=== PATIENT | female | born 1990 | race Caucasian/White ===

== ENCOUNTER 2019-10-19 17:48 | Observation (INO) | payer BC ==
--- NOTE | 2019-10-19 19:00 | EDM.PDOC ---
ED HPI GENERAL MEDICAL PROBLEM - General Chief Complaint: Gastrointestinal Problem Stated Complaint: VOMITING/STOMACH PAIN Time Seen by Provider: 10/19/19 19:00 Source of Information: Reports: Patient History Limitations: Reports: No Limitations - History of Present Illness INITIAL COMMENTS - FREE TEXT/NARRATIVE: 29 years old female patient presented with a chief complaint of severe epigastric pain started yesterday, constant, no radiation, dull aching and sharp pain. Nothing makes it better or worse. Associated with nausea and vomiting. Frequent vomiting. Has some blood speckles on it. Denies any fever. Denies any chest pain shortness breath. Denies any cough. Denies any urinary symptom. Denies any diarrhea. She did not had a bowel movement since yesterday and she thinks she might be constipated. She denies any vaginal discharge but she is having her period currently. She was seen earlier at the clinic and prescribed Zofran and Phenergan, no workup was done. 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 ED EXAM, GI/ABD - Physical Exam Exam: See Below Exam Limited By: No Limitations General Appearance: Alert, WD/WN, No Apparent Distress Respiratory/Chest: No Respiratory Distress, Lungs Clear, Normal Breath Sounds, No Accessory Muscle Use, Chest Non-Tender Cardiovascular: Normal Peripheral Pulses, Regular Rate, Rhythm, No Edema, No Gallop, No JVD, No Murmur, No Rub GI/Abdominal Exam: Normal Bowel Sounds, Soft, No Organomegaly, No Distention, No Mass, Other (Epigastric and left upper quadrant tenderness. No guarding no rebound.) Course - Vital Signs Last Recorded V/S: Last Vital Signs Temp 36.7 C 10/19/19 23:28 Pulse 51 L 10/19/19 23:28 Resp 17 10/19/19 23:28 BP 129/96 H 10/19/19 23:28 Pulse Ox 98 10/19/19 23:28 - Orders/Labs/Meds Orders: Active Orders 24 hr Category Date Time Status HYDROmorphone [Dilaudid] Med 10/20/19 00:13 Once 1 mg IVPUSH ONETIME ONE Pantoprazole [ProTONIX IV] 40 mg Med 10/20/19 00:15 Ordered Sodium Chloride 0.9% [Normal Saline] 100 ml IV .BOLUS Labs: Laboratory Tests 10/19/19 10/19/19 10/19/19 Range/Units 19:18 19:18 19:18 WBC 7.0 (4.5-11.0) K/uL RBC 4.63 (3.30-5.50) M/uL Hgb 13.3 (12.0-15.0) g/dL Hct 41.9 (36.0-48.0) % MCV 91 (80-98) fL MCH 29 (27-31) pg MCHC 32 (32-36) % Plt Count 253 (150-400) K/uL Neut % (Auto) 67 H (36-66) % Lymph % (Auto) 19 L (24-44) % [place] % (Auto) 12 H (2-6) % Eos % (Auto) 1 L (2-4) % Baso % (Auto) 0 (0-1) % ESR 16 (0-25) mm/hr PT 10.2 (9.5-12.0) sec INR 0.94 (0.80-1.20) Sodium 141 (140-148) mmol/L Potassium 3.8 (3.6-5.2) mmol/L Chloride 100 (100-108) mmol/L Carbon Dioxide 31 (21-32) mmol/L Anion Gap 10.1 (5.0-14.0) mmol/L BUN 11 (7-18) mg/dL Creatinine 0.9 (0.6-1.0) mg/dL Est Cr Clr Drug Dosing 89.69 mL/min Estimated GFR (MDRD) > 60 (>60) Glucose 112 H (74-106) mg/dL Lactic Acid (0.4-2.0) mmol/L Calcium 8.8 (8.5-10.1) mg/dL Total Bilirubin 0.4 D (0.2-1.0) mg/dL AST 30 (15-37) U/L ALT 30 (12-78) U/L Alkaline Phosphatase 80 (46-116) U/L C-Reactive Protein 0.92 H (0.0-0.3) mg/dL Total Protein 7.8 (6.4-8.2) g/dL Albumin 3.8 (3.4-5.0) g/dL Globulin 4.0 H (2.3-3.5) g/dL Albumin/Globulin Ratio 1.0 L (1.2-2.2) Lipase 262 (73-393) U/L Urine Color (YELLOW) Urine Appearance (CLEAR) Urine pH (5.0-8.0) Ur Specific [place] (1.008-1.030) Urine Protein (NEGATIVE) mg/dL Urine Glucose (UA) (NEGATIVE) mg/dL Urine Ketones (NEGATIVE) mg/dL Urine Occult Blood (NEGATIVE) Urine Nitrite (NEGATIVE) Urine Bilirubin (NEGATIVE) Urine Urobilinogen (0.2-1.0) EU/dL Ur Leukocyte Esterase (NEGATIVE) Urine RBC (0-5) Urine WBC (0-5) Ur Epithelial Cells Amorphous Sediment Urine Bacteria Urine Mucus Urine HCG, Qual Urine Opiates Screen (NEGATIVE) Ur Oxycodone Screen (NEGATIVE) Urine Methadone Screen (NEGATIVE) Ur Propoxyphene Screen (NEGATIVE) Ur Barbiturates Screen (NEGATIVE) Ur Tricyclics Screen (NEGATIVE) Ur Phencyclidine Scrn (NEGATIVE) Ur Amphetamine Screen (NEGATIVE) U Methamphetamines Scrn (NEGATIVE) Urine MDMA Screen (NEGATIVE) U Benzodiazepines Scrn (NEGATIVE) U Cocaine Metab Screen (NEGATIVE) U Marijuana (THC) Screen (NEGATIVE) 01/10/19/19 10/19/19 Range/Units 19:18 23:00 23:00 WBC (4.5-11.0) K/uL RBC (3.30-5.50) M/uL Hgb (12.0-15.0) g/dL Hct (36.0-48.0) % MCV (80-98) fL MCH (27-31) pg MCHC (32-36) % Plt Count (150-400) K/uL Neut % (Auto) (36-66) % Lymph % (Auto) (24-44) % [place] % (Auto) (2-6) % Eos % (Auto) (2-4) % Baso % (Auto) (0-1) % ESR (0-25) mm/hr PT (9.5-12.0) sec INR (0.80-1.20) Sodium (140-148) mmol/L Potassium (3.6-5.2) mmol/L Chloride (100-108) mmol/L Carbon Dioxide (21-32) mmol/L Anion Gap (5.0-14.0) mmol/L BUN (7-18) mg/dL Creatinine (0.6-1.0) mg/dL Est Cr Clr Drug Dosing mL/min Estimated GFR (MDRD) (>60) Glucose (74-106) mg/dL Lactic Acid 1.5 (0.4-2.0) mmol/L Calcium (8.5-10.1) mg/dL Total Bilirubin (0.2-1.0) mg/dL AST (15-37) U/L ALT (12-78) U/L Alkaline Phosphatase (46-116) U/L C-Reactive Protein (0.0-0.3) mg/dL Total Protein (6.4-8.2) g/dL Albumin (3.4-5.0) g/dL Globulin (2.3-3.5) g/dL Albumin/Globulin Ratio (1.2-2.2) Lipase (73-393) U/L Urine Color Yellow (YELLOW) Urine Appearance Clear (CLEAR) Urine pH 7.5 (5.0-8.0) Ur Specific [place] 1.015 (1.008-1.030) Urine Protein 30 H (NEGATIVE) mg/dL Urine Glucose (UA) Negative (NEGATIVE) mg/dL Urine Ketones 40 H (NEGATIVE) mg/dL Urine Occult Blood Negative (NEGATIVE) Urine Nitrite Negative (NEGATIVE) Urine Bilirubin Small H (NEGATIVE) Urine Urobilinogen 1.0 (0.2-1.0) EU/dL Ur Leukocyte Esterase Negative (NEGATIVE) Urine RBC 0-5 (0-5) Urine WBC 0-5 (0-5) Ur Epithelial Cells Few Amorphous Sediment Few Urine Bacteria Few Urine Mucus Few Urine HCG, Qual Negative Urine Opiates Screen (NEGATIVE) Ur Oxycodone Screen (NEGATIVE) Urine Methadone Screen (NEGATIVE) Ur Propoxyphene Screen (NEGATIVE) Ur Barbiturates Screen (NEGATIVE) Ur Tricyclics Screen (NEGATIVE) Ur Phencyclidine Scrn (NEGATIVE) Ur Amphetamine Screen (NEGATIVE) U Methamphetamines Scrn (NEGATIVE) Urine MDMA Screen (NEGATIVE) U Benzodiazepines Scrn (NEGATIVE) U Cocaine Metab Screen (NEGATIVE) U Marijuana (THC) Screen (NEGATIVE) 10/19/19 Range/Units 23:00 WBC (4.5-11.0) K/uL RBC (3.30-5.50) M/uL Hgb (12.0-15.0) g/dL Hct (36.0-48.0) % MCV (80-98) fL MCH (27-31) pg MCHC (32-36) % Plt Count (150-400) K/uL Neut % (Auto) (36-66) % Lymph % (Auto) (24-44) % [place] % (Auto) (2-6) % Eos % (Auto) (2-4) % Baso % (Auto) (0-1) % ESR (0-25) mm/hr PT (9.5-12.0) sec INR (0.80-1.20) Sodium (140-148) mmol/L Potassium (3.6-5.2) mmol/L Chloride (100-108) mmol/L Carbon Dioxide (21-32) mmol/L Anion Gap (5.0-14.0) mmol/L BUN (7-18) mg/dL Creatinine (0.6-1.0) mg/dL Est Cr Clr Drug Dosing mL/min Estimated GFR (MDRD) (>60) Glucose (74-106) mg/dL Lactic Acid (0.4-2.0) mmol/L Calcium (8.5-10.1) mg/dL Total Bilirubin (0.2-1.0) mg/dL AST (15-37) U/L ALT (12-78) U/L Alkaline Phosphatase (46-116) U/L C-Reactive Protein (0.0-0.3) mg/dL Total Protein (6.4-8.2) g/dL Albumin (3.4-5.0) g/dL Globulin (2.3-3.5) g/dL Albumin/Globulin Ratio (1.2-2.2) Lipase (73-393) U/L Urine Color (YELLOW) Urine Appearance (CLEAR) Urine pH (5.0-8.0) Ur Specific [place] (1.008-1.030) Urine Protein (NEGATIVE) mg/dL Urine Glucose (UA) (NEGATIVE) mg/dL Urine Ketones (NEGATIVE) mg/dL Urine Occult Blood (NEGATIVE) Urine Nitrite (NEGATIVE) Urine Bilirubin (NEGATIVE) Urine Urobilinogen (0.2-1.0) EU/dL Ur Leukocyte Esterase (NEGATIVE) Urine RBC (0-5) Urine WBC (0-5) Ur Epithelial Cells Amorphous Sediment Urine Bacteria Urine Mucus Urine HCG, Qual Urine Opiates Screen Presumptive positive H (NEGATIVE) Ur Oxycodone Screen Negative (NEGATIVE) Urine Methadone Screen Negative (NEGATIVE) Ur Propoxyphene Screen Negative (NEGATIVE) Ur Barbiturates Screen Negative (NEGATIVE) Ur Tricyclics Screen Negative (NEGATIVE) Ur Phencyclidine Scrn Negative (NEGATIVE) Ur Amphetamine Screen Negative (NEGATIVE) U Methamphetamines Scrn Negative (NEGATIVE) Urine MDMA Screen Negative (NEGATIVE) U Benzodiazepines Scrn Negative (NEGATIVE) U Cocaine Metab Screen Negative (NEGATIVE) U Marijuana (THC) Screen Negative (NEGATIVE) Meds: Medications Discontinued Medications Generic Name Dose Route Start Last Admin Trade Name Freq PRN Reason Stop Dose Admin Al Hydroxide/Mg Hydroxide 15 0 ml 10/19/19 23:47 10/19/19 23:56 ml/ Lidocaine HCl 15 ml PO 10/19/19 23:48 15 ml ONETIME ONE Administration Sodium Chloride 1,000 mls @ 999 mls/hr 10/19/19 19:02 10/19/19 19:16 Normal Saline IV 10/19/19 20:02 999 mls/hr .BOLUS STA Administration Sodium Chloride 85 mls @ 4 mls/sec 10/19/19 22:35 10/19/19 23:14 Normal Saline IV 10/19/19 22:36 4 mls/sec ASDIRECTED STA Administration Iopamidol 150 ml 10/19/19 22:34 10/19/19 23:15 Isovue-300 (61%) IV 10/19/19 22:35 150 ml . DIRECTED STA Administration Morphine Sulfate 4 mg 10/19/19 19:52 10/19/19 20:01 Morphine IVPUSH 10/19/19 19:53 4 mg ONETIME ONE Administration Morphine Sulfate 4 mg 10/19/19 23:28 10/19/19 23:37 Morphine IVPUSH 10/19/19 23:29 4 mg ONETIME ONE Administration Ondansetron HCl 4 mg 10/19/19 19:09 10/19/19 19:28 Zofran IVPUSH 10/19/19 19:10 4 mg ONETIME ONE Administration - Radiology Interpretation Free Text/Narrative:: Patient was seen and examined shortly after arrival. Stable. Given 1 L normal saline bolus, 4 mg IV Zofran. 4 mg IV morphine 2, also given GI cocktail.. Lab and imaging reviewed with the patient. No significant acute abnormalities. CT abdomen and pelvis shows sign of possible gastritis. Patient still rating her pain 9 out of 10. Concern about peptic ulcer. Broad differential was considered including but not limited to acute pancreatitis, acute cholecystitis, colitis, appendicitis, pyelonephritis., Bowel obstruction, etc. Again concern about peptic ulcer disease. Given 40 IV Protonix. Also given another milligram of IV Dilaudid. 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 Patient agrees with the plan. Stable for admission., Departure - Departure Time of Disposition: 00:15 Disposition: Refer to Observation Condition: Good, Fair Clinical Impression: Abdominal pain - Discharge Information *PRESCRIPTION DRUG MONITORING PROGRAM REVIEWED*: Not Applicable *COPY OF PRESCRIPTION DRUG MONITORING REPORT IN PATIENT JACQUES: Not Applicable Referrals: PCP,None [Primary Care Provider] - Forms: ED Department Discharge Sepsis Event Note - Evaluation Sepsis Screening Result: No Definite Risk - Focused Exam Vital Signs: Vital Signs Temp Pulse Resp BP Pulse Ox 10/19/19 23:28 36.7 C 51 L 17 129/96 H 98 10/19/19 18:25 37.5 C 73 14 138/89 99 10/19/19 18:18 37.5 C 73 14 138/89 99 Date Exam was Performed: 10/20/19 Time Exam was Performed: 00:15 - My Orders Last 24 Hours: My Active Orders 10/20/19 00:13 HYDROmorphone [Dilaudid] 1 mg IVPUSH ONETIME ONE 10/20/19 00:15 Pantoprazole [ProTONIX IV] 40 mg Sodium Chloride 0.9% [Normal Saline] 100 ml IV .BOLUS - Assessment/Plan Last 24 Hours: My Active Orders 10/20/19 00:13 HYDROmorphone [Dilaudid] 1 mg IVPUSH ONETIME ONE 10/20/19 00:15 Pantoprazole [ProTONIX IV] 40 mg Sodium Chloride 0.9% [Normal Saline] 100 ml IV .BOLUS
[2019-10-19] MEDS ORDERED: Sodium Chloride 0.9% 1,000 ML IV STA (19:02)
[2019-10-19] MEDS ORDERED: Ondansetron 4 MG/2 ML SDV IVPUSH ONE (19:09)
[2019-10-19] MEDS ORDERED: Morphine 4 MG/ML Syringe IVPUSH ONE ×2 (19:52→23:28)
[2019-10-19] MEDS ORDERED: Iopamidol 612 MG/ML 150 ML Bottle IV STA (22:34)
--- NOTE | 2019-10-19 23:42 | CRLCT ---
Indication: Abdominal pain Technique: Contrast enhanced axial CT imaging through the abdomen and pelvis. 150 mL Isovue-300 contrast agent was administered intravenously. Sagittal and coronal reconstructions are provided. Comparison: None Findings: There is wall thickening and edema involving the gastric antrum and pylorus, concerning for gastritis. The small bowel and colon are unremarkable. There is no free intraperitoneal fluid or air. The appendix is noninflamed. A 15 mm hypoattenuating lesion is noted in the right hepatic lobe, with peripheral nodular enhancement, suggesting a benign hemangioma. There is no significant abnormality of the gallbladder, spleen, pancreas, adrenal glands, and kidneys. The portal vein is patent. There is normal caliber of the abdominal aorta. There is no abdominal lymphadenopathy. The visualized osseous structures are unremarkable. The included lung bases are clear. Impression: 1. Wall thickening and edema of the gastric antrum and pylorus, concerning for gastritis. Correlate clinically. 2. A 15 mm hypoattenuating lesion in the right hepatic lobe, most likely a benign hemangioma. Confirmation with contrast enhanced MRI or multiphase liver CT is recommended non emergently. Please note that all CT scans at this facility use dose modulation, iterative reconstruction, and/or weight-based dosing when appropriate to reduce radiation dose to as low as reasonably achievable. Dictated by Perla Sheikh MD @ Oct 19 2019 11:40PM Signed by Dr. Perla Sheikh @ Oct 19 2019 11:40PM
[2019-10-19] MEDS ORDERED: Alum Hydrox/Mag Hydrox/Simeth 15 ML, Lidocaine 2% 15 ML PO ONE ×2 (23:47)
[2019-10-20] MEDS ORDERED: HYDROmorphone 1 MG/ML Syringe IVPUSH ONE (00:13)
[2019-10-20] MEDS ORDERED: Pantoprazole 40 MG in Sodium Chloride 0.9% 100 ML IV SCH (00:15)
[2019-10-20] MEDS ORDERED: Ondansetron 4 MG/2 ML SDV IV PRN (00:18)
[2019-10-20] MEDS ORDERED: Promethazine 12.5 MG in Sodium Chloride 0.9% 50 ML IV PRN (00:18)
[2019-10-20] MEDS ORDERED: HYDROmorphone 1 MG/ML Syringe IVPUSH PRN (00:23)
--- NOTE | 2019-10-20 00:28 | PCM.HP.2 ---
H&P History of Present Illness - General Date of Service: 10/20/19 Admit Problem/Dx: Admission Diagnosis/Problem Admission Diagnosis/Problem Pain Source of Information: Patient History Limitations: Reports: No Limitations - History of Present Illness Initial Comments - Free Text/Narative: Patient is a 29yo female seen by me at [facility] earlier on 10/19/19 for nausea and vomiting for 1 day. Patient is in the ER tonight because of abdominal pain that has worsened. Her N/V has improved since earlier Saturday. She says her pain is epigastric and shooting in nature. She denies F/C or diarrhea, CP, SOB, Onset of Symptoms: Reports: Sudden Symptom Onset Date: 10/19/19 Duration of Symptoms: Reports: Getting Worse Location: Reports: Abdomen Quality: Reports: Sharp, Stabbing Improves with: Reports: Medication Worsens with: Reports: Eating, Other (nausea) Associated Symptoms: Denies: Confusion, Fever/Chills, Headaches, Rash, Shortness of Breath Abdomen Pain Score (Numeric/FACES): 10 - Related Data Allergies/Adverse Reactions: Allergies Allergy/AdvReac Type Severity Reaction Status Date / Time No Known Allergies Allergy Verified 08/13/13 21:54 Home Medications: Home Meds Metoclopramide HCl [Reglan] 10 mg PO QID PRN 10/19/19 [History] Ondansetron [Zofran Odt] 4 - 8 mg PO Q8H PRN 10/19/19 [History] Promethazine [Phenergan] 25 mg PO Q6H PRN 10/19/19 [History] diphenhydrAMINE [Benadryl] 25 - 50 mg PO ASDIRECTED PRN 10/19/19 [History] Past Medical History [employer] History: Reports: Neurological History: Reports: Concussion - Past Surgical History Head Surgeries/Procedures: Reports: None Neurological Surgical History: Reports: None Dermatological Surgical History: Reports: None Social & Family History - Tobacco Use Smoking Status *Q: Never Smoker Second Hand Smoke Exposure: No - Caffeine Use Caffeine Use: Reports: None - Recreational Drug Use Recreational Drug Use: No H&P Review of Systems - Review of Systems: Review Of Systems: See Below General: Denies: Fever, Chills, Fatigue HEENT: Reports: No Symptoms Pulmonary: Reports: No Symptoms Cardiovascular: Reports: No Symptoms Gastrointestinal: Reports: Abdominal Pain, Nausea, Vomiting Genitourinary: Reports: No Symptoms Musculoskeletal: Reports: No Symptoms Skin: Reports: No Symptoms Psychiatric: Reports: No Symptoms Neurological: Reports: No Symptoms Hematologic/Lymphatic: Reports: No Symptoms Immunologic: Reports: No Symptoms Exam - Exam Exam: See Below - Vital Signs Vital Signs: Last Vital Signs Temp 36.7 C 10/19/19 23:28 Pulse 51 L 10/19/19 23:28 Resp 17 10/19/19 23:28 BP 129/96 H 10/19/19 23:28 Pulse Ox 98 10/19/19 23:28 Weight: 98.6 kg - Exam General: Alert, Oriented, Cooperative HEENT: PERRLA, Hearing Intact, Mucosa Moist & Hercules, Nares Patent, Normal Nasal Septum, Posterior Pharynx Clear, Conjunctiva Clear, EOMI, EACs Clear, TMs Clear Neck: Supple, Trachea Midline, 2 Lungs: Clear to Auscultation, Normal Respiratory Effort Cardiovascular: Regular Rate, Regular Rhythm GI/Abdominal Exam: Normal Bowel Sounds, Soft, No Abnormal Bruit, No Mass, Pelvis Stable, Tender (epigastric) (Female) Exam: Deferred Rectal (Female) Exam: Deferred Back Exam: Normal Inspection, Full Range of Motion, NT Extremities: Normal Inspection, Normal Range of Motion, Non-Tender, No Pedal Edema, Normal Capillary Refill Skin: Warm, Dry, Intact Neurological: Cranial Nerves Intact, Reflexes Equal Bilateral Neuro Extensive - Mental Status: Alert, Oriented x3, Normal Mood/Affect, Normal Cognition Psychiatric: Alert, Normal Affect, Normal Mood - Patient Data Lab Results Last 24 hrs: Laboratory Results - last 24 hr 10/19/19 10/19/19 10/19/19 Range/Units 19:18 19:18 19:18 WBC 7.0 (4.5-11.0) K/uL RBC 4.63 (3.30-5.50) M/uL Hgb 13.3 (12.0-15.0) g/dL Hct 41.9 (36.0-48.0) % MCV 91 (80-98) fL MCH 29 (27-31) pg MCHC 32 (32-36) % Plt Count 253 (150-400) K/uL Neut % (Auto) 67 H (36-66) % Lymph % (Auto) 19 L (24-44) % Carroll % (Auto) 12 H (2-6) % Eos % (Auto) 1 L (2-4) % Baso % (Auto) 0 (0-1) % ESR 16 (0-25) mm/hr PT 10.2 (9.5-12.0) sec INR 0.94 (0.80-1.20) Sodium 141 (140-148) mmol/L Potassium 3.8 (3.6-5.2) mmol/L Chloride 100 (100-108) mmol/L Carbon Dioxide 31 (21-32) mmol/L Anion Gap 10.1 (5.0-14.0) mmol/L BUN 11 (7-18) mg/dL Creatinine 0.9 (0.6-1.0) mg/dL Est Cr Clr Drug Dosing 89.69 mL/min Estimated GFR (MDRD) > 60 (>60) Glucose 112 H (74-106) mg/dL Lactic Acid (0.4-2.0) mmol/L Calcium 8.8 (8.5-10.1) mg/dL Total Bilirubin 0.4 D (0.2-1.0) mg/dL AST 30 (15-37) U/L ALT 30 (12-78) U/L Alkaline Phosphatase 80 (46-116) U/L C-Reactive Protein 0.92 H (0.0-0.3) mg/dL Total Protein 7.8 (6.4-8.2) g/dL Albumin 3.8 (3.4-5.0) g/dL Globulin 4.0 H (2.3-3.5) g/dL Albumin/Globulin Ratio 1.0 L (1.2-2.2) Lipase 262 (73-393) U/L Urine Color (YELLOW) Urine Appearance (CLEAR) Urine pH (5.0-8.0) Ur Specific [place] (1.008-1.030) Urine Protein (NEGATIVE) mg/dL Urine Glucose (UA) (NEGATIVE) mg/dL Urine Ketones (NEGATIVE) mg/dL Urine Occult Blood (NEGATIVE) Urine Nitrite (NEGATIVE) Urine Bilirubin (NEGATIVE) Urine Urobilinogen (0.2-1.0) EU/dL Ur Leukocyte Esterase (NEGATIVE) Urine RBC (0-5) Urine WBC (0-5) Ur Epithelial Cells Amorphous Sediment Urine Bacteria Urine Mucus Urine HCG, Qual Urine Opiates Screen (NEGATIVE) Ur Oxycodone Screen (NEGATIVE) Urine Methadone Screen (NEGATIVE) Ur Propoxyphene Screen (NEGATIVE) Ur Barbiturates Screen (NEGATIVE) Ur Tricyclics Screen (NEGATIVE) Ur Phencyclidine Scrn (NEGATIVE) Ur Amphetamine Screen (NEGATIVE) U Methamphetamines Scrn (NEGATIVE) Urine MDMA Screen (NEGATIVE) U Benzodiazepines Scrn (NEGATIVE) U Cocaine Metab Screen (NEGATIVE) U Marijuana (THC) Screen (NEGATIVE) 10/19/19 10/19/19 10/19/19 Range/Units 19:18 23:00 23:00 WBC (4.5-11.0) K/uL RBC (3.30-5.50) M/uL Hgb (12.0-15.0) g/dL Hct (36.0-48.0) % MCV (80-98) fL MCH (27-31) pg MCHC (32-36) % Plt Count (150-400) K/uL Neut % (Auto) (36-66) % Lymph % (Auto) (24-44) % Carroll % (Auto) (2-6) % Eos % (Auto) (2-4) % Baso % (Auto) (0-1) % ESR (0-25) mm/hr PT (9.5-12.0) sec INR (0.80-1.20) Sodium (140-148) mmol/L Potassium (3.6-5.2) mmol/L Chloride (100-108) mmol/L Carbon Dioxide (21-32) mmol/L Anion Gap (5.0-14.0) mmol/L BUN (7-18) mg/dL Creatinine (0.6-1.0) mg/dL Est Cr Clr Drug Dosing mL/min Estimated GFR (MDRD) (>60) Glucose (74-106) mg/dL Lactic Acid 1.5 (0.4-2.0) mmol/L Calcium (8.5-10.1) mg/dL Total Bilirubin (0.2-1.0) mg/dL AST (15-37) U/L ALT (12-78) U/L Alkaline Phosphatase (46-116) U/L C-Reactive Protein (0.0-0.3) mg/dL Total Protein (6.4-8.2) g/dL Albumin (3.4-5.0) g/dL Globulin (2.3-3.5) g/dL Albumin/Globulin Ratio (1.2-2.2) Lipase (73-393) U/L Urine Color Yellow (YELLOW) Urine Appearance Clear (CLEAR) Urine pH 7.5 (5.0-8.0) Ur Specific [place] 1.015 (1.008-1.030) Urine Protein 30 H (NEGATIVE) mg/dL Urine Glucose (UA) Negative (NEGATIVE) mg/dL Urine Ketones 40 H (NEGATIVE) mg/dL Urine Occult Blood Negative (NEGATIVE) Urine Nitrite Negative (NEGATIVE) Urine Bilirubin Small H (NEGATIVE) Urine Urobilinogen 1.0 (0.2-1.0) EU/dL Ur Leukocyte Esterase Negative (NEGATIVE) Urine RBC 0-5 (0-5) Urine WBC 0-5 (0-5) Ur Epithelial Cells Few Amorphous Sediment Few Urine Bacteria Few Urine Mucus Few Urine HCG, Qual Negative Urine Opiates Screen (NEGATIVE) Ur Oxycodone Screen (NEGATIVE) Urine Methadone Screen (NEGATIVE) Ur Propoxyphene Screen (NEGATIVE) Ur Barbiturates Screen (NEGATIVE) Ur Tricyclics Screen (NEGATIVE) Ur Phencyclidine Scrn (NEGATIVE) Ur Amphetamine Screen (NEGATIVE) U Methamphetamines Scrn (NEGATIVE) Urine MDMA Screen (NEGATIVE) U Benzodiazepines Scrn (NEGATIVE) U Cocaine Metab Screen (NEGATIVE) U Marijuana (THC) Screen (NEGATIVE) 10/19/19 Range/Units 23:00 WBC (4.5-11.0) K/uL RBC (3.30-5.50) M/uL Hgb (12.0-15.0) g/dL Hct (36.0-48.0) % MCV (80-98) fL MCH (27-31) pg MCHC (32-36) % Plt Count (150-400) K/uL Neut % (Auto) (36-66) % Lymph % (Auto) (24-44) % Carroll % (Auto) (2-6) % Eos % (Auto) (2-4) % Baso % (Auto) (0-1) % ESR (0-25) mm/hr PT (9.5-12.0) sec INR (0.80-1.20) Sodium (140-148) mmol/L Potassium (3.6-5.2) mmol/L Chloride (100-108) mmol/L Carbon Dioxide (21-32) mmol/L Anion Gap (5.0-14.0) mmol/L BUN (7-18) mg/dL Creatinine (0.6-1.0) mg/dL Est Cr Clr Drug Dosing mL/min Estimated GFR (MDRD) (>60) Glucose (74-106) mg/dL Lactic Acid (0.4-2.0) mmol/L Calcium (8.5-10.1) mg/dL Total Bilirubin (0.2-1.0) mg/dL AST (15-37) U/L ALT (12-78) U/L Alkaline Phosphatase (46-116) U/L C-Reactive Protein (0.0-0.3) mg/dL Total Protein (6.4-8.2) g/dL Albumin (3.4-5.0) g/dL Globulin (2.3-3.5) g/dL Albumin/Globulin Ratio (1.2-2.2) Lipase (73-393) U/L Urine Color (YELLOW) Urine Appearance (CLEAR) Urine pH (5.0-8.0) Ur Specific [place] (1.008-1.030) Urine Protein (NEGATIVE) mg/dL Urine Glucose (UA) (NEGATIVE) mg/dL Urine Ketones (NEGATIVE) mg/dL Urine Occult Blood (NEGATIVE) Urine Nitrite (NEGATIVE) Urine Bilirubin (NEGATIVE) Urine Urobilinogen (0.2-1.0) EU/dL Ur Leukocyte Esterase (NEGATIVE) Urine RBC (0-5) Urine WBC (0-5) Ur Epithelial Cells Amorphous Sediment Urine Bacteria Urine Mucus Urine HCG, Qual Urine Opiates Screen Presumptive positive H (NEGATIVE) Ur Oxycodone Screen Negative (NEGATIVE) Urine Methadone Screen Negative (NEGATIVE) Ur Propoxyphene Screen Negative (NEGATIVE) Ur Barbiturates Screen Negative (NEGATIVE) Ur Tricyclics Screen Negative (NEGATIVE) Ur Phencyclidine Scrn Negative (NEGATIVE) Ur Amphetamine Screen Negative (NEGATIVE) U Methamphetamines Scrn Negative (NEGATIVE) Urine MDMA Screen Negative (NEGATIVE) U Benzodiazepines Scrn Negative (NEGATIVE) U Cocaine Metab Screen Negative (NEGATIVE) U Marijuana (THC) Screen Negative (NEGATIVE) Result Diagrams: 10/19/19 19:18 10/19/19 19:18 Sepsis Event Note - Evaluation Sepsis Screening Result: No Definite Risk - Focused Exam Vital Signs: Vital Signs Temp Pulse Resp BP Pulse Ox 10/19/19 23:28 36.7 C 51 L 17 129/96 H 98 10/19/19 18:25 37.5 C 73 14 138/89 99 10/19/19 18:18 37.5 C 73 14 138/89 99 Date Exam was Performed: 10/20/19 Time Exam was Performed: 00:43 - Problem List (1) Abdominal pain SNOMED Code(s): 34036449 ICD Code: R10.9 - UNSPECIFIED ABDOMINAL PAIN Status: Acute Current Visit : Yes Problem Details: Patient's pain has improved some with GI cocktail, but is still having some sharp/stabbing pains. Patient does not have pancreatitis, CT shows likely gastritis. Will start protonix and give IV dilaudid if needed. If pain does not resolve by AM with protonix, patient should be evaluated for possible EGD/Scope Qualifiers: Abdominal location: epigastric Qualified Code(s): R10.13 - Epigastric pain (2) Nausea & vomiting SNOMED Code(s): 73706241 ICD Code: R11.2 - NAUSEA WITH VOMITING, UNSPECIFIED Status: Acute Current Visit: Yes Problem Details: Patient's nausea is being controlled with zofran/phenergan. Will order as IV for nausea and vomiting PRN Problem List Initiated/Reviewed/Updated: Yes Orders Last 24hrs: Active Orders 24 hr Category Date Time Status Patient Status Manage Transfer [TRANSFER] Routine ADT 10/20/19 00:24 Active Patient Status [ADT] Routine ADT 10/20/19 00:19 Active Ambulate [RC] QID Care 10/20/19 00:18 Active Ambulate [RC] QID Care 10/20/19 00:18 Active May Shower [RC] ASDIRECTED Care 10/20/19 00:18 Active Oxygen Therapy [RC] PRN Care 10/20/19 00:19 Active VTE/DVT Education [RC] Per Unit Routine Care 10/20/19 00:19 Active Vital Signs [RC] Q4H Care 10/20/19 00:19 Active Nothing per Oral Now Diet [DIET] Diet 10/20/19 Breakfast Active HYDROmorphone [Dilaudid] Med 10/20/19 00:23 Active 0.5 mg IVPUSH Q2H PRN Ondansetron [Zofran] Med 10/20/19 00:18 Active 4 mg IV Q4H PRN Pantoprazole [ProTONIX IV] 40 mg Med 10/20/19 00:15 Active Sodium Chloride 0.9% [Normal Saline] 100 ml IV .BOLUS Promethazine [Phenergan] 12.5 mg Med 10/20/19 00:18 Active Sodium Chloride 0.9% [Normal Saline] 50 ml IV Q6H Sodium Chloride 0.9% [Normal Saline] 1,000 ml Med 10/20/19 00:30 Active IV ASDIRECTED Resuscitation Status Routine Resus Stat 10/20/19 00:18 Ordered Medication Orders Hydromorphone HCl (Dilaudid) 0.5 mg IVPUSH Q2H PRN PRN Reason: Abdominal Pain Pantoprazole Sodium 40 mg/ (Sodium Chloride) 100 mls @ 200 mls/hr IV .BOLUS ROMI Promethazine HCl 12.5 mg/ (Sodium Chloride) 50.5 mls @ 200 mls/hr IV Q6H PRN PRN Reason: Nausea/Vomiting Sodium Chloride (Normal Saline) 1,000 mls @ 125 mls/hr IV ASDIRECTED ROMI Ondansetron HCl (Zofran) 4 mg IV Q4H PRN PRN Reason: Nausea/Vomiting - Mortality Measure Prognosis:: Good
[2019-10-20] MEDS ORDERED: Pantoprazole 40 MG Vial IVPUSH SCH (01:00)
[2019-10-20] MEDS: Sodium Chloride 0.9% 1,000 ML IV SCH ×2 (02:11→09:42)
[2019-10-20 07:16] VITALS: BP 126/74; PULSE 57
--- NOTE | 2019-10-20 11:55 | PCM.DCSUM1 ---
Discharge Summary - Hospital Course Brief History: Healthy 29-year-old female who presented with epigastric abdominal pain with nausea. She was admitted for observation and symptomatic management of gastritis. Diagnosis: Stroke: No - Discharge Data Discharge Date: 10/20/19 Discharge Disposition: Home, Self-Care 01 Condition: Good - Referral to Home Health Primary Care Physician: PCP None - Discharge Diagnosis/Problem(s) (1) Gastritis SNOMED Code(s): 6788135 ICD Code: K29.70 - GASTRITIS, UNSPECIFIED, WITHOUT BLEEDING Status: Acute Qualifiers: Gastritis type: unspecified gastritis Chronicity: acute Gastritis bleeding: without bleeding Qualified Code(s): K29.00 - Acute gastritis without bleeding (2) Nausea & vomiting SNOMED Code(s): 37519922 ICD Code: R11.2 - NAUSEA WITH VOMITING, UNSPECIFIED Status: Acute Qualifiers: Vomiting type: unspecified Vomiting Intractability: non-intractable Qualified Code(s): R11.2 - Nausea with vomiting, unspecified - Patient Summary/Data Hospital Course: Presented to the emergency room with epigastric abdominal pain as well as nausea and vomiting.Dianne work-up in the emergency room was fairly unremarkable other than a CT scan that showed some thickening of the distal stomach concerning for gastritis. Patient was admitted for observation and pain control. Overnight there were no acute issues. Her abdominal pain was much better by the morning after admission. She has not had significant nausea or vomiting. She has not had any fevers or hematemesis. She was able to eat breakfast without much difficulty other than some irritation of her throat with toast. She feels well enough to try to go home at this point. I believe she is safe for discharge home and I suspect that she has been struggling with a viral gastritis. She will be utilizing lozenges to help with her sore throat. She may consider an acid blocking medication or Maalox to help with any GI upset but I suspect that this will pass in the near future without additional significant intervention. If she has persistent symptoms she may benefit from endoscopy. Her vital signs are stable and she has no pain at this time. She is able to eat and drink adequately and I believe she is safe for outpatient management at this time. - Patient Instructions Diet: Regular Diet as Tolerated (soft, bland and boring for the next few days ) Activity: As Tolerated Showering/Bathing: May Shower Notify Provider of: Fever, Increased Pain, Nausea and/or Vomiting Other/Special Instructions: 1. You were in the hospital for management of abdominal pain with nausea and vomiting caused by gastritis. Your condition has been improving with hydration and symptom management. I do recommend a soft and bland diet for the next several days until your symptoms resolve. You may use a soothing lozenge such as Cepacol to help with your sore throat. I would recommend that you use Tylenol for mild pain. I have provided a limited prescription for hydrocodone which you can use for moderate pain. 2. Please follow-up with your primary care provider if your symptoms do not continue to get better or if they get worse. - Discharge Plan *PRESCRIPTION DRUG MONITORING PROGRAM REVIEWED*: Not Applicable *COPY OF PRESCRIPTION DRUG MONITORING REPORT IN PATIENT JACQUES: Not Applicable Prescriptions/Med Rec: Acetaminophen/HYDROcodone [[place] 325-5 MG] 1 tab PO Q6H PRN #5 tablet PRN Reason: Pain (Moderate 4-6) Home Medications: Home Meds Metoclopramide HCl [Reglan] 10 mg PO QID PRN 10/19/19 [History] Ondansetron [Zofran Odt] 4 - 8 mg PO Q8H PRN 10/19/19 [History] Promethazine [Phenergan] 25 mg PO Q6H PRN 10/19/19 [History] diphenhydrAMINE [Benadryl] 25 - 50 mg PO ASDIRECTED PRN 10/19/19 [History] Acetaminophen/HYDROcodone [[place] 325-5 MG] 1 tab PO Q6H PRN #5 tablet 10/20/19 [ Rx] Oxygen Therapy Mode: Room Air Patient Handouts: Gastritis, Adult, [id number] Referrals: PCP,None [Primary Care Provider] - (f/u if symptoms do not continue to get better or if they get worse ) - Discharge Summary/Plan Comment DC Time >30 min.: No - Patient Data Vitals - Most Recent: Last Vital Signs Temp 35.6 C 10/20/19 06:00 Pulse 57 L 10/20/19 06:00 Resp 18 10/20/19 06:00 BP 126/74 10/20/19 06:00 Pulse Ox 98 10/20/19 06:00 Weight - Most Recent: 99.79 kg I&O - Last 24 hours: Intake & Output 10/19/19 10/20/19 10/20/19 22:59 06:59 14:59 Intake Total 424 240 Output Total 200 Balance 224 240 Lab Results - Last 24 hrs: Laboratory Results - last 24 hr 10/19/19 10/19/19 10/19/19 Range/Units 19:18 19:18 19:18 WBC 7.0 (4.5-11.0) K/uL RBC 4.63 (3.30-5.50) M/uL Hgb 13.3 (12.0-15.0) g/dL Hct 41.9 (36.0-48.0) % MCV 91 (80-98) fL MCH 29 (27-31) pg MCHC 32 (32-36) % Plt Count 253 (150-400) K/uL Neut % (Auto) 67 H (36-66) % Lymph % (Auto) 19 L (24-44) % [place] % (Auto) 12 H (2-6) % Eos % (Auto) 1 L (2-4) % Baso % (Auto) 0 (0-1) % ESR 16 (0-25) mm/hr PT 10.2 (9.5-12.0) sec INR 0.94 (0.80-1.20) Sodium 141 (140-148) mmol/L Potassium 3.8 (3.6-5.2) mmol/L Chloride 100 (100-108) mmol/L Carbon Dioxide 31 (21-32) mmol/L Anion Gap 10.1 (5.0-14.0) mmol/L BUN 11 (7-18) mg/dL Creatinine 0.9 (0.6-1.0) mg/dL Est Cr Clr Drug Dosing 89.69 mL/min Estimated GFR (MDRD) > 60 (>60) Glucose 112 H (74-106) mg/dL Lactic Acid (0.4-2.0) mmol/L Calcium 8.8 (8.5-10.1) mg/dL Total Bilirubin 0.4 D (0.2-1.0) mg/dL AST 30 (15-37) U/L ALT 30 (12-78) U/L Alkaline Phosphatase 80 (46-116) U/L C-Reactive Protein 0.92 H (0.0-0.3) mg/dL Total Protein 7.8 (6.4-8.2) g/dL Albumin 3.8 (3.4-5.0) g/dL Globulin 4.0 H (2.3-3.5) g/dL Albumin/Globulin Ratio 1.0 L (1.2-2.2) Lipase 262 (73-393) U/L Urine Color (YELLOW) Urine Appearance (CLEAR) Urine pH (5.0-8.0) Ur Specific [place] (1.008-1.030) Urine Protein (NEGATIVE) mg/dL Urine Glucose (UA) (NEGATIVE) mg/dL Urine Ketones (NEGATIVE) mg/dL Urine Occult Blood (NEGATIVE) Urine Nitrite (NEGATIVE) Urine Bilirubin (NEGATIVE) Urine Urobilinogen (0.2-1.0) EU/dL Ur Leukocyte Esterase (NEGATIVE) Urine RBC (0-5) Urine WBC (0-5) Ur Epithelial Cells Amorphous Sediment Urine Bacteria Urine Mucus Urine HCG, Qual Urine Opiates Screen (NEGATIVE) Ur Oxycodone Screen (NEGATIVE) Urine Methadone Screen (NEGATIVE) Ur Propoxyphene Screen (NEGATIVE) Ur Barbiturates Screen (NEGATIVE) Ur Tricyclics Screen (NEGATIVE) Ur Phencyclidine Scrn (NEGATIVE) Ur Amphetamine Screen (NEGATIVE) U Methamphetamines Scrn (NEGATIVE) Urine MDMA Screen (NEGATIVE) U Benzodiazepines Scrn (NEGATIVE) U Cocaine Metab Screen (NEGATIVE) U Marijuana (THC) Screen (NEGATIVE) 10/19/19 10/19/19 10/19/19 Range/Units 19:18 23:00 23:00 WBC (4.5-11.0) K/uL RBC (3.30-5.50) M/uL Hgb (12.0-15.0) g/dL Hct (36.0-48.0) % MCV (80-98) fL MCH (27-31) pg MCHC (32-36) % Plt Count (150-400) K/uL Neut % (Auto) (36-66) % Lymph % (Auto) (24-44) % [place] % (Auto) (2-6) % Eos % (Auto) (2-4) % Baso % (Auto) (0-1) % ESR (0-25) mm/hr PT (9.5-12.0) sec INR (0.80-1.20) Sodium (140-148) mmol/L Potassium (3.6-5.2) mmol/L Chloride (100-108) mmol/L Carbon Dioxide (21-32) mmol/L Anion Gap (5.0-14.0) mmol/L BUN (7-18) mg/dL Creatinine (0.6-1.0) mg/dL Est Cr Clr Drug Dosing mL/min Estimated GFR (MDRD) (>60) Glucose (74-106) mg/dL Lactic Acid 1.5 (0.4-2.0) mmol/L Calcium (8.5-10.1) mg/dL Total Bilirubin (0.2-1.0) mg/dL AST (15-37) U/L ALT (12-78) U/L Alkaline Phosphatase (46-116) U/L C-Reactive Protein (0.0-0.3) mg/dL Total Protein (6.4-8.2) g/dL Albumin (3.4-5.0) g/dL Globulin (2.3-3.5) g/dL Albumin/Globulin Ratio (1.2-2.2) Lipase (73-393) U/L Urine Color Yellow (YELLOW) Urine Appearance Clear (CLEAR) Urine pH 7.5 (5.0-8.0) Ur Specific [place] 1.015 (1.008-1.030) Urine Protein 30 H (NEGATIVE) mg/dL Urine Glucose (UA) Negative (NEGATIVE) mg/dL Urine Ketones 40 H (NEGATIVE) mg/dL Urine Occult Blood Negative (NEGATIVE) Urine Nitrite Negative (NEGATIVE) Urine Bilirubin Small H (NEGATIVE) Urine Urobilinogen 1.0 (0.2-1.0) EU/dL Ur Leukocyte Esterase Negative (NEGATIVE) Urine RBC 0-5 (0-5) Urine WBC 0-5 (0-5) Ur Epithelial Cells Few Amorphous Sediment Few Urine Bacteria Few Urine Mucus Few Urine HCG, Qual Negative Urine Opiates Screen (NEGATIVE) Ur Oxycodone Screen (NEGATIVE) Urine Methadone Screen (NEGATIVE) Ur Propoxyphene Screen (NEGATIVE) Ur Barbiturates Screen (NEGATIVE) Ur Tricyclics Screen (NEGATIVE) Ur Phencyclidine Scrn (NEGATIVE) Ur Amphetamine Screen (NEGATIVE) U Methamphetamines Scrn (NEGATIVE) Urine MDMA Screen (NEGATIVE) U Benzodiazepines Scrn (NEGATIVE) U Cocaine Metab Screen (NEGATIVE) U Marijuana (THC) Screen (NEGATIVE) 10/19/19 Range/Units 23:00 WBC (4.5-11.0) K/uL RBC (3.30-5.50) M/uL Hgb (12.0-15.0) g/dL Hct (36.0-48.0) % MCV (80-98) fL MCH (27-31) pg MCHC (32-36) % Plt Count (150-400) K/uL Neut % (Auto) (36-66) % Lymph % (Auto) (24-44) % [place] % (Auto) (2-6) % Eos % (Auto) (2-4) % Baso % (Auto) (0-1) % ESR (0-25) mm/hr PT (9.5-12.0) sec INR (0.80-1.20) Sodium (140-148) mmol/L Potassium (3.6-5.2) mmol/L Chloride (100-108) mmol/L Carbon Dioxide (21-32) mmol/L Anion Gap (5.0-14.0) mmol/L BUN (7-18) mg/dL Creatinine (0.6-1.0) mg/dL Est Cr Clr Drug Dosing mL/min Estimated GFR (MDRD) (>60) Glucose (74-106) mg/dL Lactic Acid (0.4-2.0) mmol/L Calcium (8.5-10.1) mg/dL Total Bilirubin (0.2-1.0) mg/dL AST (15-37) U/L ALT (12-78) U/L Alkaline Phosphatase (46-116) U/L C-Reactive Protein (0.0-0.3) mg/dL Total Protein (6.4-8.2) g/dL Albumin (3.4-5.0) g/dL Globulin (2.3-3.5) g/dL Albumin/Globulin Ratio (1.2-2.2) Lipase (73-393) U/L Urine Color (YELLOW) Urine Appearance (CLEAR) Urine pH (5.0-8.0) Ur Specific [place] (1.008-1.030) Urine Protein (NEGATIVE) mg/dL Urine Glucose (UA) (NEGATIVE) mg/dL Urine Ketones (NEGATIVE) mg/dL Urine Occult Blood (NEGATIVE) Urine Nitrite (NEGATIVE) Urine Bilirubin (NEGATIVE) Urine Urobilinogen (0.2-1.0) EU/dL Ur Leukocyte Esterase (NEGATIVE) Urine RBC (0-5) Urine WBC (0-5) Ur Epithelial Cells Amorphous Sediment Urine Bacteria Urine Mucus Urine HCG, Qual Urine Opiates Screen Presumptive positive H (NEGATIVE) Ur Oxycodone Screen Negative (NEGATIVE) Urine Methadone Screen Negative (NEGATIVE) Ur Propoxyphene Screen Negative (NEGATIVE) Ur Barbiturates Screen Negative (NEGATIVE) Ur Tricyclics Screen Negative (NEGATIVE) Ur Phencyclidine Scrn Negative (NEGATIVE) Ur Amphetamine Screen Negative (NEGATIVE) U Methamphetamines Scrn Negative (NEGATIVE) Urine MDMA Screen Negative (NEGATIVE) U Benzodiazepines Scrn Negative (NEGATIVE) U Cocaine Metab Screen Negative (NEGATIVE) U Marijuana (THC) Screen Negative (NEGATIVE) Med Orders - Current: Current Medications Hydromorphone HCl (Dilaudid) 0.5 mg IVPUSH Q2H PRN PRN Reason: Abdominal Pain Promethazine HCl 12.5 mg/ (Sodium Chloride) 50.5 mls @ 200 mls/hr IV Q6H PRN PRN Reason: Nausea/Vomiting Sodium Chloride (Normal Saline) 1,000 mls @ 125 mls/hr IV ASDIRECTED [facility] Last Admin: 10/20/19 09:42 Dose: 125 mls/hr Ondansetron HCl (Zofran) 4 mg IV Q4H PRN PRN Reason: Nausea/Vomiting Pantoprazole Sodium (Protonix Iv) 40 mg IVPUSH Q12H [facility] Last Admin: 10/20/19 01:09 Dose: 40 mg Discontinued Medications Al Hydroxide/Mg Hydroxide 15 (ml/ Lidocaine HCl 15 ml) 0 ml PO ONETIME ONE Stop: 10/19/19 23:48 Last Admin: 10/19/19 23:56 Dose: 15 ml Hydromorphone HCl (Dilaudid) 1 mg IVPUSH ONETIME ONE Stop: 10/20/19 00:14 Last Admin: 10/20/19 00:48 Dose: 1 mg Sodium Chloride (Normal Saline) 1,000 mls @ 999 mls/hr IV .BOLUS STA Stop: 10/19/19 20:02 Last Admin: 10/19/19 19:16 Dose: 999 mls/hr Sodium Chloride (Normal Saline) 85 mls @ 4 mls/sec IV ASDIRECTED STA Stop: 10/19/19 22:36 Last Admin: 10/19/19 23:14 Dose: 4 mls/sec Pantoprazole Sodium 40 mg/ (Sodium Chloride) 100 mls @ 200 mls/hr IV .BOLUS ROMI Iopamidol (Isovue-300 (61%)) 150 ml IV . DIRECTED STA Stop: 10/19/19 22:35 Last Admin: 10/19/19 23:15 Dose: 150 ml Morphine Sulfate (Morphine) 4 mg IVPUSH ONETIME ONE Stop: 10/19/19 19:53 Last Admin: 10/19/19 20:01 Dose: 4 mg Morphine Sulfate (Morphine) 4 mg IVPUSH ONETIME ONE Stop: 10/19/19 23:29 Last Admin: 10/19/19 23:37 Dose: 4 mg Ondansetron HCl (Zofran) 4 mg IVPUSH ONETIME ONE Stop: 10/19/19 19:10 Last Admin: 10/19/19 19:28 Dose: 4 mg - Exam Quality Assessment: Denies: Supplemental Oxygen General: Reports: Alert, Oriented, Cooperative, No Acute Distress Lungs: Reports: Normal Respiratory Effort GI/Abdominal Exam: Soft, No Distention Extremities: No Pedal Edema Psy/Mental Status: Reports: Alert, Normal Affect
== END 2019-10-20 13:00 | disposition home or self-care (01) ==
LOC: JP.ED 17:48 → JP.2SS 10-20 00:24
PROVIDERS: ADMIT Family Medicine; ATTEND Internal Medicine
DX: K29.00 Acute gastritis without bleeding (principal)
CPT/HCPCS: 36415; 74177; 80053; 80305; 81001; 81025; 83605; 83690; 85025; 85610; 85651; 86140; 96361; 96374; 96375; 96376; 99285; A9270; C9113; J1170; J2270; J2405; J7030; J7050; Q9967

== ENCOUNTER 2020-12-26 13:15 | Emergency (ER) | payer BC, OTHER, SELFPAY ==
[2020-12-26 13:27] VITALS: BP 140/85; PULSE 92
--- NOTE | 2020-12-26 13:51 | EDM.PDOC ---
ED HPI GENERAL MEDICAL PROBLEM - General Chief Complaint: RN NURSERY Problem Stated Complaint: POSSIBLE MISCARRIAGE Time Seen by Provider: 12/26/20 13:35 Source of Information: Reports: Patient History Limitations: Reports: No Limitations - History of Present Illness INITIAL COMMENTS - FREE TEXT/NARRATIVE: 30-year-old female who has experienced 3 previous miscarriages, no live births, is approximately 7 weeks gestation with a current and started bleeding today. She has no pain but she is very concerned, already on progesterone supplementation. She has not had an ultrasound at this point. No fevers or chills. Onset: Sudden Duration: Minutes: (30 minutes ago) - Related Data Allergies Allergy/AdvReac Type Severity Reaction Status Date / Time No Known Allergies Allergy Verified 12/26/20 13:28 Home Meds: Home Meds diphenhydrAMINE [Benadryl] 25 - 50 mg PO ASDIRECTED PRN 10/19/19 [History] Vit37/Iron/Folic Acid [[place]] 1 each PO DAILY 12/26/20 [History] Progesterone, Micronized [Progesterone] 100 mg PO BID 12/26/20 [History] Past Medical History HEENT History: Reports: None Cardiovascular History: Reports: None Respiratory History: Reports: None Gastrointestinal History: Reports: None RN NURSERY History: Reports: , Spontaneous Other RN NURSERY History: G 4P0 Musculoskeletal History: Reports: None Neurological History: Reports: Concussion Psychiatric History: Reports: None Endocrine/Metabolic History: Reports: None Hematologic History: Reports: None Immunologic History: Reports: None Oncologic (Cancer) History: Reports: None Dermatologic History: Reports: None - Infectious Disease History Infectious Disease History: Reports: Chicken Pox - Past Surgical History Head Surgeries/Procedures: Reports: None Cardiovascular Surgical History: Reports: None GI Surgical History: Reports: None Neurological Surgical History: Reports: None Musculoskeletal Surgical History: Reports: None Dermatological Surgical History: Reports: None Social & Family History - Family History Family Medical History: No Pertinent Family History - Tobacco Use Tobacco Use Status *Q: Never Tobacco User - Caffeine Use Caffeine Use: Reports: Coffee - Recreational Drug Use Recreational Drug Use: No ED ROS GENERAL - Review of Systems Review Of Systems: See Below Constitutional: Denies: Fever, Chills HEENT: Reports: No Symptoms Respiratory: Reports: No Symptoms Cardiovascular: Reports: No Symptoms GI/Abdominal: Denies: Abdominal Pain, Nausea, Vomiting : Denies: Dysuria Skin: Reports: No Symptoms Neurological: Reports: No Symptoms. Denies: Headache ED EXAM - Physical Exam Exam: See Below Exam Limited By: No Limitations General Appearance: Alert, No Apparent Distress Head: Atraumatic Respiratory/Chest: No Respiratory Distress Cardiovascular: Regular Rate, Rhythm. No: Tachycardia (Female) Exam: Other (deferred to Ultrasound) Neurological: Alert, Oriented Psychiatric: Normal Affect, Normal Mood Skin Exam: Warm, Dry Course - Vital Signs Last Recorded V/S: Last Vital Signs Temp 98.3 F 12/26/20 13:27 Pulse 92 12/26/20 13:27 Resp 16 12/26/20 13:27 BP 140/85 12/26/20 13:27 Pulse Ox 100 12/26/20 13:27 - Orders/Labs/Meds Labs: Laboratory Tests 12/26/20 12/26/20 Range/Units 15:18 15:18 WBC 8.5 (4.5-11.0) K/uL RBC 4.45 (3.30-5.50) M/uL Hgb 12.4 (12.0-15.0) g/dL Hct 39.1 (36.0-48.0) % MCV 88 (80-98) fL MCH 28 (27-31) pg MCHC 32 (32-36) % Plt Count 305 (150-400) K/uL Neut % (Auto) 67 H (36-66) % Lymph % (Auto) 22 L (24-44) % [place] % (Auto) 10 H (2-6) % Eos % (Auto) 1 L (2-4) % Baso % (Auto) 0 (0-1) % HCG, Quant 675 H (0-6) mIU/mL - Re-Assessments/Exams Free Text/Narrative Re-Assessment/Exam: 12/27/20 07:15 Ultrasound showed no intrauterine activity of , there was some slight fullness in the right adnexa. Quantitative beta-hCG is less than 700. I did discuss this with RN NURSERY on-call, she will be rechecked in 2 days for repeat ultrasound and beta hCG, she can return sooner if increased pain or other concerns Departure - Departure Time of Disposition: 16:00 Disposition: Home, Self-Care 01 Clinical Impression: Incomplete - Discharge Information Instructions: Vaginal Bleeding During , First Trimester Referrals: Joanna Jacob CNM [Primary Care Provider] - Forms: ED Department Discharge Care Plan Goals: Rest for the next 2 days, the RN NURSERY department will be calling you to make an appointment on Saturday for another ultrasound and blood test. Ibuprofen or naproxen would be helpful if pain develops. Sepsis Event Note (ED) - Evaluation Sepsis Screening Result: No Definite Risk
--- NOTE | 2020-12-26 15:21 | US ---
INDICATION: bleeding at 7 weeks COMPARISON: None FINDINGS: Uterus measures 9.0 x 5.1 x 4.4 cm. The image from is thickened at 2.1 cm. It is heterogeneous. No gestational sac is identified. There is no evidence of pole. There are very small amount of free fluid in the cul-de-sac. Adjacent to the right ovary and right portion of the uterus is 2.4 x 2.0 x 2.4 cm heterogeneous focus. No internal blood flow or heartbeat is identified. IMPRESSION: Endometrial thickening No evidence of intrauterine Small amount of free fluid with heterogeneous focus contiguous to the right ovary and uterus. This is nonspecific. Ectopic is not excluded. This should be correlated with beta hCG levels. Dr. Gonzalez was notified of the results at the time of the examination
== END 2020-12-26 16:08 | disposition home or self-care (01) ==
LOC: JP.ED 13:15
DX: O03.4 Incomplete spontaneous abortion without complication (principal)
CPT/HCPCS: 36415; 76801; 76801-26; 76817; 76817-26; 84702; 85025; 99282; 99284-25

== ENCOUNTER 2021-01-25 08:34 | Emergency (ER) | payer OTHER, SELFPAY ==
[2021-01-25] MEDS ORDERED: Ketorolac 60 MG/2 ML SDV IM ONE (08:58)
[2021-01-25] MEDS ORDERED: Ondansetron 4 MG Tab.DIS PO ONE (09:04)
--- NOTE | 2021-01-25 09:11 | EDM.PDOC ---
ED HPI GENERAL MEDICAL PROBLEM - General Chief Complaint: Abdominal Pain Stated Complaint: ABDOMINAL PAIN Time Seen by Provider: 01/25/21 09:00 Source of Information: Reports: Patient, Old Records, RN History Limitations: Reports: No Limitations - History of Present Illness INITIAL COMMENTS - FREE TEXT/NARRATIVE: 30 yo female here with abrupt onset of pelvic pain and cramping this morning associated with onset of nausea/vomiting after the onset of the pain. No fever. Had a miscarriage a month ago and has been sexually active without protection since. Has a pHx of recurrent miscarriages. Onset of vaginal bleeding today, with the bleeding not heavy. Took ibuprofen at the onset of her sx's about 6 hrs ago without significant relief. Onset: Today, Sudden Onset Date: 01/25/21 Onset Time: 03:00 Duration: Hour(s): (6), Constant Location: Reports: Pelvis Quality: Reports: Other (cramping) Severity: Severe Improves with: Reports: None Worsens with: Reports: Other (unknown) Context: Reports: Other (See HPI) Associated Symptoms: Reports: Nausea/Vomiting. Denies: Fever/Chills Treatments [employer]: Reports: NSAIDS (6 hrs ago) Pelvic Pain Score (Numeric/FACES): 10 - Related Data Allergies Allergy/AdvReac Type Severity Reaction Status Date / Time No Known Allergies Allergy Verified 01/25/21 08:58 Home Meds: Home Meds diphenhydrAMINE [Benadryl] 25 - 50 mg PO ASDIRECTED PRN 10/19/19 [History] Past Medical History HEENT History: Reports: None Cardiovascular History: Reports: None Respiratory History: Reports: None Gastrointestinal History: Reports: None PILE HEADER History: Reports: , Spontaneous Other PILE HEADER History: G 4P0 Musculoskeletal History: Reports: None Neurological History: Reports: Concussion Psychiatric History: Reports: None Endocrine/Metabolic History: Reports: None Hematologic History: Reports: None Immunologic History: Reports: None Oncologic (Cancer) History: Reports: None Dermatologic History: Reports: None - Infectious Disease History Infectious Disease History: Reports: Chicken Pox - Past Surgical History Head Surgeries/Procedures: Reports: None Cardiovascular Surgical History: Reports: None GI Surgical History: Reports: None Neurological Surgical History: Reports: None Musculoskeletal Surgical History: Reports: None Dermatological Surgical History: Reports: None Social & Family History - Family History Family Medical History: No Pertinent Family History - Tobacco Use Tobacco Use Status *Q: Never Tobacco User - Caffeine Use Caffeine Use: Reports: Coffee - Recreational Drug Use Recreational Drug Use: No ED ROS GENERAL - Review of Systems Review Of Systems: See Below Constitutional: Reports: No Symptoms HEENT: Reports: No Symptoms Respiratory: Reports: No Symptoms Cardiovascular: Reports: No Symptoms GI/Abdominal: Reports: Nausea, Vomiting. Denies: Black Stool, Bloody Stool, Diarrhea, Distension, Hematemesis, Hematochezia, Melena : Reports: Pain, Other (vaginal bleeding) Musculoskeletal: Reports: No Symptoms Skin: Reports: No Symptoms Neurological: Reports: No Symptoms ED EXAM, GI/ABD - Physical Exam Exam: See Below Exam Limited By: No Limitations General Appearance: Alert, WD/WN, No Apparent Distress Eyes: Bilateral: Normal Appearance Ears: Normal External Exam, Normal Canal, Hearing Grossly Normal Nose: Normal Inspection, No Blood Throat/Mouth: Normal Inspection, Normal Lips, Normal Oropharynx, Normal Voice, No Airway Compromise Head: Atraumatic, Normocephalic Neck: Normal Inspection Respiratory/Chest: No Respiratory Distress, Lungs Clear, Normal Breath Sounds, No Accessory Muscle Use Cardiovascular: Regular Rate, Rhythm, No Edema GI/Abdominal Exam: Normal Bowel Sounds, Soft, Non-Tender, No Distention (Female) Exam: Other (pelvic tenderness) Back Exam: Normal Inspection Extremities: Normal Inspection, Normal Range of Motion, Non-Tender, No Pedal Edema Neurological: Alert, Oriented, CN II-XII Intact, Normal Cognition, No Motor/Sensory Deficits Psychiatric: Normal Affect, Normal Mood Skin Exam: Warm, Dry, Intact, Normal Color, No Rash Course - Vital Signs Last Recorded V/S: Last Vital Signs Temp 36.3 C 01/25/21 09:01 Pulse 88 01/25/21 10:35 Resp 28 H 01/25/21 09:01 BP 106/62 01/25/21 10:35 Pulse Ox 99 01/25/21 10:35 - Orders/Labs/Meds Orders: Active Orders 24 hr Category Date Time Status Cardiac Monitoring [RC] .As Directed Care 01/25/21 10:32 Active Orthostatic Vital Signs [RC] ASDIRECTED Care 01/25/21 08:59 Active PATIENT RETYPE [BBK] Stat Lab 01/25/21 09:25 Results TYPE AND SCREEN [BBK] Stat Lab 01/25/21 09:25 Results Labs: Laboratory Tests 01/25/21 01/25/21 01/25/21 Range/Units 08:42 08:43 09:25 WBC 13.9 H (4.5-11.0) K/uL RBC 4.22 (3.30-5.50) M/uL Hgb 11.6 L (12.0-15.0) g/dL Hct 36.8 (36.0-48.0) % MCV 87 (80-98) fL MCH 28 (27-31) pg MCHC 32 (32-36) % Plt Count 375 (150-400) K/uL Sodium (140-148) mmol/L Potassium (3.6-5.2) mmol/L Chloride (100-108) mmol/L Carbon Dioxide (21-32) mmol/L Anion Gap (5.0-14.0) mmol/L BUN (7-18) mg/dL Creatinine (0.6-1.0) mg/dL Est Cr Clr Drug Dosing mL/min Estimated GFR (MDRD) (>60) Glucose (74-106) mg/dL Calcium (8.5-10.1) mg/dL HCG, Quant (0-6) mIU/mL Urine Color Yellow (YELLOW) Urine Appearance Slightly cloudy A (CLEAR) Urine pH 6.0 (5.0-8.0) Ur Specific [place] 1.025 (1.008-1.030) Urine Protein 30 H (NEGATIVE) mg/dL Urine Glucose (UA) Negative (NEGATIVE) mg/dL Urine Ketones 15 H (NEGATIVE) mg/dL Urine Occult Blood Trace-intact H (NEGATIVE) Urine Nitrite Negative (NEGATIVE) Urine Bilirubin Small H (NEGATIVE) Urine Urobilinogen 0.2 (0.2-1.0) EU/dL Ur Leukocyte Esterase Negative (NEGATIVE) Urine RBC 5-10 H (0-5) Urine WBC 0-5 (0-5) Ur Epithelial Cells Few Amorphous Sediment Moderate Urine Bacteria Rare Urine Mucus Many Urine HCG, Qual Positive H Blood Type Gel Antibody Screen 01/25/21 01/25/21 01/25/21 Range/Units 09:25 09:25 10:30 WBC (4.5-11.0) K/uL RBC (3.30-5.50) M/uL Hgb (12.0-15.0) g/dL Hct (36.0-48.0) % MCV (80-98) fL MCH (27-31) pg MCHC (32-36) % Plt Count (150-400) K/uL Sodium 139 L (140-148) mmol/L Potassium 4.3 (3.6-5.2) mmol/L Chloride 103 (100-108) mmol/L Carbon Dioxide 24 (21-32) mmol/L Anion Gap 16.3 H (5.0-14.0) mmol/L BUN 13 (7-18) mg/dL Creatinine 1.0 (0.6-1.0) mg/dL Est Cr Clr Drug Dosing 79.99 mL/min Estimated GFR (MDRD) > 60 (>60) Glucose 138 H (74-106) mg/dL Calcium 9.0 (8.5-10.1) mg/dL HCG, Quant 101 H (0-6) mIU/mL Urine Color (YELLOW) Urine Appearance (CLEAR) Urine pH (5.0-8.0) Ur Specific [place] (1.008-1.030) Urine Protein (NEGATIVE) mg/dL Urine Glucose (UA) (NEGATIVE) mg/dL Urine Ketones (NEGATIVE) mg/dL Urine Occult Blood (NEGATIVE) Urine Nitrite (NEGATIVE) Urine Bilirubin (NEGATIVE) Urine Urobilinogen (0.2-1.0) EU/dL Ur Leukocyte Esterase (NEGATIVE) Urine RBC (0-5) Urine WBC (0-5) Ur Epithelial Cells Amorphous Sediment Urine Bacteria Urine Mucus Urine HCG, Qual Blood Type O POSITIVE Gel Antibody Screen Negative Meds: Medications Discontinued Medications Generic Name Dose Route Start Last Admin Trade Name Freq PRN Reason Stop Dose Admin Hydromorphone HCl 0.5 mg 01/25/21 09:59 01/25/21 10:14 Hydromorphone 0.5 Mg/0.5 Ml Syringe IVPUSH 01/25/21 10:00 0.5 mg ONETIME ONE Administration Lactated Ringer's 1,000 mls @ 1,000 mls/hr 01/25/21 09:15 01/25/21 09:33 Ringers, Lactated IV 01/25/21 10:14 1,000 mls/hr BOLUS ONE Administration Ketorolac Tromethamine 60 mg 01/25/21 08:58 01/25/21 09:08 Ketorolac 60 Mg/2 Ml Sdv IM 01/25/21 08:59 60 mg ONETIME ONE Administration Ondansetron HCl 4 mg 01/25/21 09:04 01/25/21 09:09 Ondansetron 4 Mg Tab.Dis PO 01/25/21 09:05 4 mg ONETIME ONE Administration - Radiology Interpretation Free Text/Narrative:: Pelvic US-5 cm R ovarian cyst, - Re-Assessments/Exams Free Text/Narrative Re-Assessment/Exam: 01/25/21 10:43 Pain is better, vitals currently improved after a liter of LR. Departure - Departure Time of Disposition: 11:55 Disposition: Home, Self-Care 01 Condition: Fair Clinical Impression: Right ovarian cyst, First trimester - Discharge Information *PRESCRIPTION DRUG MONITORING PROGRAM REVIEWED*: No *COPY OF PRESCRIPTION DRUG MONITORING REPORT IN PATIENT JACQUES: No Instructions: Ovarian Cyst, [id number] Referrals: PCP,None [Primary Care Provider] - Forms: ED Department Discharge Additional Instructions: Take either acetaminophen or Percocet for pain relief. Use Zofran as needed for nausea control. Recheck with your provider in the next couple of days to see how you are doing. Avoid ibuprofen or Aleve due to your status. Return as needed. Sepsis Event Note (ED) - Evaluation Sepsis Screening Result: No Definite Risk - Focused Exam Vital Signs: Vital Signs Temp Pulse Resp BP Pulse Ox 01/25/21 10:35 88 106/62 99 01/25/21 09:15 74 108/69 98 01/25/21 09:01 36.3 C 91 28 H 87/54 L 97 01/25/21 08:52 36.3 C 91 28 H 87/54 L 97 - My Orders Last 24 Hours: My Active Orders 01/25/21 08:59 Orthostatic Vital Signs [RC] ASDIRECTED 01/25/21 09:25 PATIENT RETYPE [BBK] Stat TYPE AND SCREEN [BBK] Stat 01/25/21 10:32 Cardiac Monitoring [RC] .As Directed - Assessment/Plan Last 24 Hours: My Active Orders 01/25/21 08:59 Orthostatic Vital Signs [RC] ASDIRECTED 01/25/21 09:25 PATIENT RETYPE [BBK] Stat TYPE AND SCREEN [BBK] Stat 01/25/21 10:32 Cardiac Monitoring [RC] .As Directed
[2021-01-25] MEDS ORDERED: Lactated Ringers 1,000 ML IV ONE (09:15)
[2021-01-25] MEDS ORDERED: HYDROmorphone 0.5 MG/0.5 ML Syringe IVPUSH ONE (09:59)
[2021-01-25 10:46] VITALS: BP 106/62; PULSE 88
--- NOTE | 2021-01-25 11:29 | US ---
INDICATION: Recent miscarriage, ? retained products of concept COMPARISON: 12/26/2020 FINDINGS: Uterus measures 9.2 x 5.4 x 3.9 cm Endometrial thickness is 3 mm. No intrauterine fluid collection is identified The right ovary is enlarged measuring 6.6 x 6.7 x 7.1 cm. There is an anechoic focus measuring 5.2 x 5.5 x 4.3 cm. No internal echoes are identified. No internal flow is seen. Interposed between this ovarian cyst in the uterus is a rounded soft tissue focus measuring 2.9 x 3.0 cm. It is somewhat heterogeneous. This was present on the December ultrasound. It measures slightly larger on current exam. Some of this difference may be technical. Left ovary measures 2.1 x 2.1 x 3.0 cm. IMPRESSION: Large right ovarian cyst increased in size since prior study Rounded soft tissue focus interposed between the uterus and right ovary was seen on prior study. It measures slightly larger. This may represent a subserosal fibroid. Solid ovarian mass is felt less likely but not excluded. This would not be consistent with ectopic Decrease in endometrial thickening seen on prior study Findings should be correlated with beta hCG levels
== END 2021-01-25 12:08 | disposition home or self-care (01) ==
LOC: JP.ED 08:34
DX: O34.81 Maternal care for other abnormalities of pelvic organs, first trimester (principal); N83.201 Unspecified ovarian cyst, right side; Z3A.00 Weeks of gestation of pregnancy not specified
CPT/HCPCS: 36415; 76801; 76817; 80048; 81001; 81025; 84702; 85027; 86850; 86900; 86901; 96372; 96374; 99284; A9270; J1170; J1885; J7120

== ENCOUNTER 2023-01-19 23:01 | Emergency (ER) | payer BC, MEDICAID ==
[2023-01-19 23:12] VITALS: BP 123/74; PULSE 107
[2023-01-19] MEDS ORDERED: Sodium Chloride 0.9% 1,000 ML IV ONE (23:33)
[2023-01-19] MEDS ORDERED: Ondansetron 4 MG/2 ML SDV IVPUSH ONE (23:33)
[2023-01-19] MEDS ORDERED: Pantoprazole 40 MG Vial IVPUSH ONE (23:33)
[2023-01-19] MEDS ORDERED: Ketorolac 30 MG/ML SDV IVPUSH ONE (23:55)
[2023-01-20 00:02] LABS: ESTIMATED GFR 77 mL/min (>60)
[2023-01-20] MEDS ORDERED: fentaNYL 50 MCG/ML SDV IVPUSH ONE (00:22)
== END 2023-01-20 01:17 | disposition home or self-care (01) ==
LOC: JP.ED 23:01
DX: K29.00 Acute gastritis without bleeding (principal); Z72.0 Tobacco use; Z91.018 Allergy to other foods; Z79.82 Long term (current) use of aspirin
CPT/HCPCS: 36415; 80053; 83690; 85025; 96361; 96374; 96375; 99284; C9113; J1885; J2405; J3010; J7030; 99283